=== PATIENT | female | born 1980 | race African-American/Black ===

== ENCOUNTER 2023-10-11 09:42 | Emergency (ER) | payer BC, SELFPAY ==
[2023-10-11 10:00] VITALS: BP 130/85; PULSE 94; RESP 18; TEMP 36.4; O2SAT 98
[2023-10-11 10:15] LABS: Add Urine Microscopic? NO; Appearance Urine Clear (Clear); Bilirubin Urine Negative (Negative); Blood Urine Negative (Negative); Color Urine Yellow (Yellow); Glucose Urine UA Negative (Negative); Ketones Urine Negative (Negative); Leukocyte Esterase Ur Negative LEU/UL (Negative); Nitrate Urine Negative (Negative); Protein Urine Negative (Negative); Specific Grav Ur 1.026 (1.001-1.035); Urobilinogen Urine 0.2 mg/dL (<2.0)
--- NOTE | 2023-10-11 10:34 | ED.GENADULT ---
HPI - General Adult General Chief complaint: Urogenital-Female Stated complaint: UTI sx Time Seen by Provider: 10/11/23 09:48 History of Present Illness HPI narrative: 43-year-old female history of chronic neck and back pain presents to the emergency room for evaluation of upper abdominal pain has been present for 4 days. Describes pain as a nagging sensation. Denies in/V/ D or constipation. Patient also endorses dysuria with urinary urgency and frequency. Denies hematuria states he abdominal pain wraps around to the back. Takes Tylenol with no improvement of her symptoms. Denies GERD. Denies fevers. No changes in her bowel habits appear Related Data Allergies Allergy/AdvReac Type Severity Reaction Status Date / Time No Known Allergies Allergy Mild Unverified 05/20/08 23:52 Review of Systems Review of Systems: ROS unremarkable except for noted in HPI Exam Narrative: GENERAL: Well-appearing, well-nourished, no physical limitations, and in no acute distress. HEAD: Normocephalic, atraumatic. EYES: Conjunctivae normal, PERRLA and EOMI. CHEST: Clear to auscultation. No respiratory distress. No wheezes rales or rhonchi. HEART: Regular rate and rhythm. No murmur heard. Normal peripheral pulses. ABDOMEN: Soft, upper abdominal tenderness, nondistended, normal active bowel sounds. BACK: No CVA tenderness EXTREMITIES: Normal range of motion. No edema. No clubbing or cyanosis SKIN: Warm, dry, no rash. No noted wounds NEURO: No focal deficits. Alert and oriented x3. MAEW. CN's II-XI intact bilaterally, normal gait PSYCH: Cooperative. Normal mood and affect. Course Vital Signs Vital signs: Vital Signs Temperature 36.4 C 10/11/23 10:00 Pulse Rate 94 10/11/23 10:00 Respiratory Rate 18 10/11/23 10:00 Blood Pressure 130/85 10/11/23 10:00 Pulse Oximetry 98 10/11/23 10:00 Oxygen Delivery Room Air 10/11/23 10:00 Temperature 36.4 C 10/11/23 10:00 Pulse Rate 94 10/11/23 10:00 Respiratory Rate 18 10/11/23 10:00 Blood Pressure 130/85 10/11/23 10:00 Pulse Oximetry 98 10/11/23 10:00 Oxygen Delivery Room Air 10/11/23 10:00 Medical Decision Making MDM Narrative Medical decision making narrative: Patient refusing further evaluation. States she was is here to make sure she did not have a UTI. Consult patient about the risks and benefits of discontinuing evaluation. Encourage patient to follow-up the PCP or urgent care in the future of for concerns over possible cystitis. Vital Signs Vital Signs: Vital Signs Temperature 36.4 C 10/11/23 10:00 Pulse Rate 94 10/11/23 10:00 Respiratory Rate 18 10/11/23 10:00 Blood Pressure 130/85 10/11/23 10:00 Pulse Oximetry 98 10/11/23 10:00 Oxygen Delivery Room Air 10/11/23 10:00 Temperature 36.4 C 10/11/23 10:00 Pulse Rate 94 10/11/23 10:00 Respiratory Rate 18 10/11/23 10:00 Blood Pressure 130/85 10/11/23 10:00 Pulse Oximetry 98 10/11/23 10:00 Oxygen Delivery Room Air 10/11/23 10:00 Lab Data Labs: Lab Results 10/11/23 Range/Units 10:02 Urine Color Yellow (Yellow) Urine Appearance Clear (Clear) Urine pH 6.0 (5.0-9.0) Ur Specific [place] 1.026 (1.001-1.035) Urine Protein Negative (Negative) mg/dL Urine Glucose (UA) Negative (Negative) mg/dL Urine Ketones Negative (Negative) mg/dL Ur Blood (Man) Negative (Negative) Urine Nitrate Negative (Negative) Urine Bilirubin Negative (Negative) Urine Urobilinogen 0.2 (<2.0) mg/dL Leukocyte Esterase Rfl Negative (Negative) DARIUSZ/UL Discharge Plan Discharge Clinical Impression: Abdominal pain, Urinary frequency Patient Disposition: Left Against Medical Advice Condition: Stable Follow-up/Referrals: Martin Ernst MD [Physician] - Time of Disposition: 11:03
[2023-10-11 11:03] VITALS: BP 136/80; PULSE 80; RESP 16; TEMP 36.6; O2SAT 100
[2023-10-11 11:37] LABS: BEDSIDEPREGUCG Negative
== END 2023-10-11 11:07 | disposition left against medical advice (07) ==
PROVIDERS: Emergency Provider Nurse Practitioner Family; PCP Internal Medicine
DX: R10.10 Upper abdominal pain, unspecified (principal); R35.0 Frequency of micturition
CPT/HCPCS: 81003; 81025; 99283